=== PATIENT | female | born 2000 | race Two or more races ===

== ENCOUNTER 2019-04-30 11:42 | Emergency (ER) | payer MEDICAID ==
[~2019-04-30] VITALS: Ht 154.9 cm; Wt 49.9 kg
[2019-04-30] MEDS ORDERED: NKM (11:50)
--- NOTE | 2019-04-30 12:00 | NUR ---
ED Nurse Note: pt walked in with mom c/o of vomiting started 3 days ago. pt stated that everytime she drinks anything she vomit afterwards. pt denies abdominal pain, pt stated that she vomited yellow color last night and clear this morning. pt stated that the last time she vomited was 5 mins prior to ed visit. denies being . pt stated she used to smoke marijuana. pt vs is stable. will continue to monitor.
[2019-04-30 12:04] VITALS: BP 123/89
[2019-04-30 12:31] LABS: EOSINOPHILS % (AUTO) 0.1 % (0.0-3.0); HEMATOCRIT 44.6 % (37.0-47.0); HEMOGLOBIN 14.7 G/DL (12.0-16.0); LYMPHOCYTES % (AUTO) 14.1 % (20.0-45.0); MEAN CORPUSCULAR VOLUME 92 FL (80-99); MONOCYTES % (AUTO) 2.6 % (1.0-10.0); NEUTROPHILS % (AUTO) 82.3 % (45.0-75.0); PLATELET COUNT 287 K/UL (150-450); RED BLOOD COUNT 4.87 M/UL (4.20-5.40); RED CELL DISTRIBUTION WIDTH 11.7 % (11.6-14.8); WHITE BLOOD COUNT 8.2 K/UL (4.8-10.8)
--- NOTE | 2019-04-30 12:37 | NUR ---
ED Nurse Note: ermd on bedside, pt is nauseated, ermd ordered iv zofran and ivf. will continue to monitor.
[2019-04-30 12:38] LABS: ANION GAP 14 mmol/L (5-15); BLOOD UREA NITROGEN 7 mg/dL (7-18); CALCIUM 9.8 MG/DL (8.5-10.1); CARBON DIOXIDE 25 MMOL/L (21-32); CHLORIDE 103 MMOL/L (98-107); CREATININE 0.7 MG/DL (0.55-1.30); POTASSIUM 3.4 MMOL/L (3.5-5.1); SODIUM 142 MMOL/L (136-145)
[2019-04-30 12:42] LABS: ALANINE AMINOTRANSFERASE 23 U/L (12-78); ALBUMIN/GLOBULIN RATIO 1.6 (1.0-2.7); ALKALINE PHOSPHATASE 54 U/L (46-116); ASPARTATE AMINO TRANSFERASE 21 U/L (15-37); BILIRUBIN,TOTAL 0.6 MG/DL (0.2-1.0)
--- NOTE | 2019-04-30 12:42 | NUR ---
ED Nurse Note: pt able to give urine sample and was sent to lab.
[2019-04-30 13:20] LABS: APPEARANCE,URINE CLEAR; BILIRUBIN, URINE NEGATIVE (NEGATIVE); GLUCOSE, URINE (UA) NEGATIVE (NEGATIVE); KETONES,URINE 4+ (NEGATIVE); LEUKOCYTE ESTERASE ,URINE 1+ (NEGATIVE); NITRITE,URINE NEGATIVE (NEGATIVE); PH,URINE 5 (4.5-8.0); PROTEIN,URINE 2+ (NEGATIVE); UROBILINOGEN,URINE NORMAL MG/DL (0.0-1.0)
[2019-04-30 13:23] LABS: COLOR,URINE YELLOW
[2019-04-30 13:24] VITALS: BP 102/60
[2019-04-30] MEDS ORDERED: ZOFRAN ODT8 MG ORAL (14:15)
[2019-04-30 14:16] VITALS: BP 111/63
--- NOTE | 2019-04-30 14:24 | NUR ---
ED Nurse Note: pt medicated as ordered. pt able to tolerate po meds. will continue to monitor.
[2019-04-30 14:28] VITALS: BP 111/67
--- NOTE | 2019-04-30 14:28 | NUR ---
ER DISCHARGE NOTE: Patient is cleared to be discharged per ERMD, pt is aox4, on room air, with stable vital signs. pt was given dc and prescription instructions, pt was able to verbalize understanding, pt id band and iv site removed without complications. pt is able to ambulate with steady gait. pt took all belongings.
--- NOTE | 2019-05-06 22:14 | Emergency Room Report ---
History of Present Illness General Chief Complaint: Vomiting Source: Patient, Family Member Present Illness Allergies: Coded Allergies: No Known Allergies (Unverified , 04/30/19) Patient History Last Menstrual Period: April, Nursing Documentation-[facility] Past Medical History: No Stated History Physical Exam Sp02 EP Interpretation: reviewed, normal General Appearance: normal inspection, well appearing, no apparent distress, alert, GCS 15 Head: atraumatic ENT: normal ENT inspection, hearing grossly normal, normal voice Neck: normal inspection, full range of motion, supple, no bony tend Respiratory: normal inspection, lungs clear, normal breath sounds, no respiratory distress, no retraction, no wheezing Cardiovascular #1: regular rate, rhythm, no edema Gastrointestinal: normal inspection, normal bowel sounds, non tender, soft, no guarding, no hernia Genitourinary: no CVA tenderness Musculoskeletal: normal inspection, back normal, normal range of motion Neurologic: normal inspection, alert, oriented x3, responsive, rda III-XII nml as tested, speech normal Psychiatric: normal inspection, judgement/insight normal, mood/affect normal Medical Decision Making Diagnostic Impression: Primary Impression: Vomiting Labs Test 04/30/19 12:08 04/30/19 12:35 White Blood Count 8.2 K/UL (4.8-10.8) Red Blood Count 4.87 M/UL (4.20-5.40) Hemoglobin 14.7 G/DL (12.0-16.0) Hematocrit 44.6 % (37.0-47.0) Mean Corpuscular Volume 92 FL (80-99) Mean Corpuscular Hemoglobin 30.2 PG (27.0-31.0) Mean Corpuscular Hemoglobin Concent 33.0 G/DL (32.0-36.0) Red Cell Distribution Width 11.7 % (11.6-14.8) Platelet Count 287 K/UL (150-450) Mean Platelet Volume 5.6 FL (6.5-10.1) Neutrophils (%) (Auto) 82.3 % (45.0-75.0) Lymphocytes (%) (Auto) 14.1 % (20.0-45.0) Monocytes (%) (Auto) 2.6 % (1.0-10.0) Eosinophils (%) (Auto) 0.1 % (0.0-3.0) Basophils (%) (Auto) 1.0 % (0.0-2.0) Sodium Level 142 MMOL/L (136-145) Potassium Level 3.4 MMOL/L (3.5-5.1) Chloride Level 103 MMOL/L (98-107) Carbon Dioxide Level 25 MMOL/L (21-32) Anion Gap 14 mmol/L (5-15) Blood Urea Nitrogen 7 mg/dL (7-18) Creatinine 0.7 MG/DL (0.55-1.30) Estimat Glomerular Filtration Rate > 60 mL/min (>60) Glucose Level 99 MG/DL (74-106) Calcium Level 9.8 MG/DL (8.5-10.1) Total Bilirubin 0.6 MG/DL (0.2-1.0) Aspartate Amino Transf (AST/SGOT) 21 U/L (15-37) Alanine Aminotransferase (ALT/SGPT) 23 U/L (12-78) Alkaline Phosphatase 54 U/L (46-116) Total Protein 8.2 G/DL (6.4-8.2) Albumin 5.0 G/DL (3.4-5.0) Globulin 3.2 g/dL Albumin/Globulin Ratio 1.6 (1.0-2.7) Lipase 168 U/L (73-393) Urine Color Yellow Urine Appearance Clear Urine pH 5 (4.5-8.0) Urine Specific Newborn 1.025 (1.005-1.035) Urine Protein 2+ (NEGATIVE) Urine Glucose (UA) Negative (NEGATIVE) Urine Ketones 4+ (NEGATIVE) Urine Blood 1+ (NEGATIVE) Urine Nitrite Negative (NEGATIVE) Urine Bilirubin Negative (NEGATIVE) Urine Urobilinogen Normal MG/DL (0.0-1.0) Urine Leukocyte Esterase 1+ (NEGATIVE) Urine RBC 0-2 /HPF (0 - 2) Urine WBC 2-4 /HPF (0 - 2) Urine Squamous Epithelial Cells Moderate /LPF (NONE/OCC) Urine Bacteria Few /HPF (NONE) Urine Mucus Moderate /LPF (NONE/OCC) Urine HCG, Qualitative Negative (NEGATIVE) Status: improved Disposition: HOME, SELF-CARE Condition: Stable Scripts Ondansetron Odt* (ZOFRAN ODT*) 8 Mg Tab.rapdis 4 MG ORAL Q6H PRN for Nausea & Vomiting, #30 TAB Prov: Jose Arriaga MD 04/30/19 Patient Instructions: Nausea and Vomiting, Adult Jose Arriaga MD May 06, 2019 22:14
== END 2019-04-30 14:28 | disposition home or self-care (01) ==
LOC: EMR 12:25
DX: R11.10 Vomiting, unspecified (principal)
CPT/HCPCS: 36415; 80053; 81003; 81025; 83690; 85025; 96361; 96374; 99284; J2405; J8499

== ENCOUNTER 2019-09-22 03:51 | Emergency (ER) | payer MEDICAID ==
[~2019-09-22] VITALS: Ht 152.4 cm; Wt 47.6 kg
[~2019-09-22 03:51] MED LIST: NKM; ZOFRAN ODT8 MG ORAL
[2019-09-22 04:00] VITALS: BP 123/82
--- NOTE | 2019-09-22 04:12 | Emergency Room Report ---
History of Present Illness General Chief Complaint: Sore Throat Source: Patient Present Illness HPI Disclaimer: Please note that this report is being documented using [employer] technology. This can lead to erroneous entry secondary to incorrect interpretation by the dictating instrument. HPI: 19-year-old female presents for evaluation of URI symptoms and vomiting. She has been sick for approximately 7 days. She reports sore throat, nonproductive cough, bilateral ear pain, nasal congestion and has been treating herself with symptomatic [id number] medications. 2 days ago she began to have nonbloody nonbilious emesis almost after every meals. She has not been able to hold down any solid food for 2 days. Feels lightheaded when ambulating. Denies diarrhea or fever. Does report chills. Reports constant nausea. Denies dysuria or hematuria. Cannot recall whether or not she received a flu shot this year PMH: Denies PSH: Denies Allergies: Denies Social Hx: Occasional tobacco use Allergies: Coded Allergies: No Known Allergies (Unverified , 04/30/19) Patient History Last Menstrual Period: 08/27/19 Now: No Nursing Documentation-PMH Past Medical History: No Stated History Review of Systems All Other Systems: negative except mentioned in HPI Physical Exam Vital Signs Date Time Temp Pulse Resp B/P (MAP) Pulse Ox O2 Delivery O2 Flow Rate FiO2 09/22/19 03:54 98.4 113 18 123/82 (96) 98 Room Air General: Awake and alert, appears uncomfortable HEENT: NC/AT. EOMI. nasal turbines are erythematous and edematous. Uvula is midline. Tonsils are 2+ and nonobstructing. Erythematous and mildly edematous but no exudate. Tympanic membranes are pearly denis bilaterally, nonbulging, no effusions. Neck: Supple, trachea midline, mild lymph adenopathy Chest Wall: No tenderness, no deformity Cardiovascular: Tachycardic. S1 and S2 normal. No murmur appreciated Resp: Normal work of breathing. Occasional cough. No wheezing or crackles Abdomen: Abdomen is soft, nondistended. Nontender Skin: Intact. No abrasions, laceration or rash over the exposed skin MSK: Normal tone and bulk. Moving all extremities. No obvious deformity. Neuro: Awake and alert. Mentating appropriately. Medical Decision Making Diagnostic Impression: Primary Impression: Viral syndrome Additional Impressions: Vomiting Sore throat ER Course 19-year-old female presents for evaluation of 1 week URI symptoms now presenting with vomiting and dehydration. We will start IV fluids, provide antiemetics, pain medications and steroids for sore throat. We will check screening labs to make sure there is no kidney injury or significant dehydration. She is afebrile otherwise with stable vital signs aside from mild tachycardia which is likely due to dehydration. Will reassess after fluids. Laboratory Tests Test 09/22/19 04:19 White Blood Count 14.6 K/UL (4.8-10.8) H Red Blood Count 4.45 M/UL (4.20-5.40) Hemoglobin 13.6 G/DL (12.0-16.0) Hematocrit 38.9 % (37.0-47.0) Mean Corpuscular Volume 87 FL (80-99) Mean Corpuscular Hemoglobin 30.5 PG (27.0-31.0) Mean Corpuscular Hemoglobin Concent 34.9 G/DL (32.0-36.0) Red Cell Distribution Width 11.2 % (11.6-14.8) L Platelet Count 282 K/UL (150-450) Mean Platelet Volume 5.0 FL (6.5-10.1) L Neutrophils (%) (Auto) % (45.0-75.0) Lymphocytes (%) (Auto) % (20.0-45.0) Monocytes (%) (Auto) % (1.0-10.0) Eosinophils (%) (Auto) % (0.0-3.0) Basophils (%) (Auto) % (0.0-2.0) Sodium Level 135 MMOL/L (136-145) L Potassium Level 3.4 MMOL/L (3.5-5.1) L Chloride Level 99 MMOL/L (98-107) Carbon Dioxide Level 27 MMOL/L (21-32) Anion Gap 9 mmol/L (5-15) Blood Urea Nitrogen 6 mg/dL (7-18) L Creatinine 0.8 MG/DL (0.55-1.30) Estimate Glomerular Filtration Rate > 60 mL/min (>60) Glucose Level 121 MG/DL (74-106) H Calcium Level 8.8 MG/DL (8.5-10.1) Reevaluation Time: 05:33 Last Vital Signs Date Time Temp Pulse Resp B/P (MAP) Pulse Ox O2 Delivery O2 Flow Rate FiO2 09/22/19 04:00 98.4 84 18 123/82 98 Room Air Reevaluation Impression Slight white count though labs largely are within normal limits. Renal function is normal. No signs of severe dehydration. The patient received her medications and feels better. She will be discharged to follow-up with her PMD. We will continue prednisone for a few days for her sore throat. Discussed reasons to return to the emergency department. She understands and agrees with this treatment plan. Disposition: HOME, SELF-CARE Condition: Stable Scripts Prednisone* (PREDNISONE*) 50 Mg Tablet 50 MG ORAL DAILY for 2 Days, #2 TAB 0 Refills Prov: Stoney Hartmann MD 09/22/19 Ibuprofen* (MOTRIN*) 600 Mg Tablet 600 MG ORAL Q8H PRN for For Pain, #30 TAB 0 Refills Prov: Stoney Hartmann MD 09/22/19 Ondansetron Odt* (ZOFRAN ODT*) 4 Mg Tab.rapdis 4 MG BC EVERY 6 HOURS PRN for Nausea & Vomiting, #20 TAB 0 Refills Prov: Stoney Hartmann MD 09/22/19 Stoney Hartmann MD Sep 22, 2019 04:12
[2019-09-22] MEDS ORDERED: Dexamethasone 4mg/ml vial IVP ONE (04:15)
[2019-09-22] MEDS ORDERED: Ketorolac 30mg Inj IV ONE (04:15)
[2019-09-22] MEDS ORDERED: Dexamethasone 20mg/5ml ONE (04:26)
[2019-09-22 04:57] LABS: HEMATOCRIT 38.9 % (37.0-47.0); HEMOGLOBIN 13.6 G/DL (12.0-16.0); MEAN CORPUSCULAR VOLUME 87 FL (80-99); PLATELET COUNT 282 K/UL (150-450); RED BLOOD COUNT 4.45 M/UL (4.20-5.40); RED CELL DISTRIBUTION WIDTH 11.2 % (11.6-14.8); WHITE BLOOD COUNT 14.6 K/UL (4.8-10.8)
[2019-09-22 05:07] LABS: ANION GAP 9 mmol/L (5-15); BLOOD UREA NITROGEN 6 mg/dL (7-18); CALCIUM 8.8 MG/DL (8.5-10.1); CARBON DIOXIDE 27 MMOL/L (21-32); CHLORIDE 99 MMOL/L (98-107); CREATININE 0.8 MG/DL (0.55-1.30); POTASSIUM 3.4 MMOL/L (3.5-5.1); SODIUM 135 MMOL/L (136-145)
[2019-09-22] MEDS ORDERED: ONDANSETRON ODT4 MG BC (05:17)
[2019-09-22] MEDS ORDERED: PREDNISONE50 MG ORAL (05:32)
[2019-09-22] MEDS ORDERED: IBUPROFEN600 MG ORAL (05:32)
[2019-09-22 05:41] VITALS: BP 123/82
== END 2019-09-22 05:41 | disposition home or self-care (01) ==
LOC: EMR 04:20
DX: B34.9 Viral infection, unspecified (principal); R07.0 Pain in throat; R11.10 Vomiting, unspecified; R00.0 Tachycardia, unspecified
CPT/HCPCS: 36415; 80048; 85025; 96361; 96374; 96375; J1100; J1885; J2405; J7030; Z7502; 99284

== ENCOUNTER 2020-02-23 16:47 | Emergency (ER) | payer MEDICAID ==
[~2020-02-23] VITALS: Ht 154.9 cm; Wt 50.8 kg
[~2020-02-23 16:47] MED LIST changes: +IBUPROFEN600 MG ORAL; +ONDANSETRON ODT4 MG BC; +PREDNISONE50 MG ORAL
[2020-02-23 17:00] VITALS: BP 122/81
--- NOTE | 2020-02-23 17:00 | NUR ---
ED Nurse Note: Pt walked into ED with c/o nausea and vomiting since yesterday. Pt has vomited more than 5 times. Pt is alert&ox4, ambulatroy. No weakness, no pallor. Skin turgor less than 3 sec.
--- NOTE | 2020-02-23 17:34 | Emergency Room Report ---
History of Present Illness General Chief Complaint: Nausea, Vomiting, and Diarrhea Source: Patient Present Illness HPI 19-year-old female presents to the emergency department complaining of multiple episodes of vomiting with associated nausea since 3 AM this morning. Patient reports she is unable to tolerate oral intake. She reports she may possibly be as she is 1 day late for her period. She denies fevers or chills. Patient is also reporting that the previous 2 months of control that she was taking was by 2 months. She denies abdominal pain, constipation or diarrhea. She denies low back pain or urinary frequency, urgency or hematuria. Patient denies dysuria. No other aggravating or relieving factors at this time. Denies ill contacts with similar symptoms. Denies dizziness or LOC. Allergies: Coded Allergies: No Known Allergies (Unverified , 04/30/19) COVID-19 Screening Contact w/high risk pt: No Recent Travel to affected area: No Experienced COVID-19 symptoms?: No COVID-19 Testing performed TRACK LAYER HEAD: No Patient History Reviewed Nursing Documentation: PMH: Agreed; PSxH: Agreed Nursing Documentation-PMH Past Medical History: No Stated History Review of Systems All Other Systems: negative except mentioned in HPI Physical Exam Vital Signs Date Time Temp Pulse Resp B/P (MAP) Pulse Ox O2 Delivery O2 Flow Rate FiO2 02/23/20 17:00 98.4 67 20 123/84 (97) 97 Room Air Sp02 EP Interpretation: reviewed, normal General Appearance: no apparent distress, alert, GCS 15, non-toxic, thin Head: normocephalic, atraumatic Eyes: bilateral eye normal inspection, bilateral eye PERRL ENT: hearing grossly normal, normal voice Neck: full range of motion Respiratory: lungs clear, normal breath sounds, speaking full sentences Cardiovascular #1: regular rate, rhythm Gastrointestinal: normal bowel sounds, non tender, soft, non-distended, no guarding Rectal: deferred Genitourinary: normal inspection, no CVA tenderness Musculoskeletal: normal range of motion, gait/station normal, non-tender Neurologic: alert, motor strength/tone normal, oriented x3, sensory intact, responsive, speech normal Psychiatric: judgement/insight normal Skin: no rash Medical Decision Making PA Attestation Dr. Hartmann is my supervising Physician whom patient management has been discussed with. Diagnostic Impression: Primary Impression: Nausea & vomiting Qualified Codes: R11.2 - Nausea with vomiting, unspecified ER Course 19-year-old female presents to the emergency department complaining of multiple episodes of vomiting with associated nausea since 3 AM this morning. Patient reports she is unable to tolerate oral intake. She reports she may possibly be as she is 1 day late for her period. She denies fevers or chills. Patient is also reporting that the previous 2 months of control that she was taking was by 2 months. She denies abdominal pain, constipation or diarrhea. She denies low back pain or urinary frequency, urgency or hematuria. Patient denies dysuria. No other aggravating or relieving factors at this time. Denies ill contacts with similar symptoms. Denies dizziness or LOC. Ddx considered but are not limited to GE, colitis, acute appendicitis, SBO, Cyclical Vomiting secondary to THC, * Vital signs: pt. is afebrile, H&PE are most consistent with GE most likely viral in etiology, no evidence to suggest acute abdomen on physical exam. ORDERS: -Urine Hcg: negative ED INTERVENTIONS: -Zofran 4mg After above interventions this patient successfully completed oral fluid challenge without nausea or vomiting. DISCHARGE: At this time pt. is stable for d/c to home. Will provide printed patient care instructions, and any necessary prescriptions. Care plan and follow up instructions have been discussed with the patient prior to discharge. Labs Test 02/23/20 17:11 Urine HCG, Qualitative Negative (NEGATIVE) Last Vital Signs Date Time Temp Pulse Resp B/P (MAP) Pulse Ox O2 Delivery O2 Flow Rate FiO2 02/23/20 17:00 98.4 67 20 123/84 (97) 97 Room Air Status: unchanged Disposition: HOME, SELF-CARE Condition: Stable Referrals: [facility] Patient Instructions: Nausea and Vomiting, Adult Additional Instructions: Take medications as directed. Follow up with a Primary Care Provider in 3-5 days, even if your symptoms have resolved. Return sooner to ED if new symptoms occur, or current symptoms become worse. - Please note that this Emergency Department Report was dictated using [employer] cloth finisher technology software, occasionally this can lead to erroneous entry secondary to interpretation by the dictation equipment. Eduarda Jose February 23, 2020 17:34
[2020-02-23] MEDS ORDERED: ONDANSETRON ODT4 MG BC (17:45)
[2020-02-23 18:02] VITALS: BP 126/74
--- NOTE | 2020-02-23 18:02 | NUR ---
ER DISCHARGE NOTE: Patient is cleared to be discharged per ERMD, pt is aox4, on room air, with stable vital signs. pt was given dc and prescription instructions, pt was able to verbalize understanding, pt id band removed. pt is able to ambulate with steady gait. pt took all belongings. Pt educated about zoffran usage.
== END 2020-02-23 18:02 | disposition home or self-care (01) ==
LOC: EMR 17:05
DX: R11.2 Nausea with vomiting, unspecified (principal); Z79.3 Long term (current) use of hormonal contraceptives
CPT/HCPCS: 81025; Z7502; 99282